=== PATIENT | male | born 1980 | race Caucasian/White ===

== ENCOUNTER 2020-09-13 04:00 | Emergency (ER) | payer OTHER ==
--- NOTE | 2020-09-13 06:10 | EDM.PDOC ---
ED HPI GENERAL MEDICAL PROBLEM - General Chief Complaint: ENT Problem Stated Complaint: NOSE BLEED Time Seen by Provider: 09/13/20 05:45 Source of Information: Reports: Patient History Limitations: Reports: No Limitations - History of Present Illness INITIAL COMMENTS - FREE TEXT/NARRATIVE: Mr. Jones is a very pleasant 40-year-old gentleman who now presents the ED after experiencing on and off left-sided epistaxis since yesterday afternoon, , 09/12/2020. He states that he has been stopping the epistaxis by stuffing his left nostril with Kleenex, or by pinching his nostrils with his fingers. He denies any injury to his nose. He states that he does not have a history of epistaxis, although he does report having nasal congestion for the past week. No recent fever. Here in the ED, the patient's initial BP is found to be slightly elevated at 137/114, otherwise, he is hemodynamically stable, afebrile, saturating 97% on room air. Prior to this afternoon, the patient denies having a recent fever, chills, sore throat, ear pain, nasal or sinus congestion, cough, dyspnea, chest pain, palpitations, nausea, vomiting, constipation, diarrhea, abdominal pain, urinary symptoms, recent weight gain or weight loss, recent bloody bowel movements or black bowel movements, recent joint aches, headaches, or rashes. The patient does not have a PCP. He has not received a COVID vaccination. - Related Data Allergies Allergy/AdvReac Type Severity Reaction Status Date / Time No Known Allergies Allergy Verified 09/13/20 04:16 Past Medical History Musculoskeletal History: Reports: Fracture (left hand) Endocrine/Metabolic History: Reports: Obesity/BMI 30+ Dermatologic History: Reports: Psoriasis - Past Surgical History HEENT Surgical History: Reports: Oral Surgery (dental extractions) Musculoskeletal Surgical History: Reports: ORIF (left hand) Social & Family History - Tobacco Use Tobacco Use Status *Q: Current Every Day Tobacco User Years of Tobacco use: 12 Packs/Tins Daily: 1 Tobacco Use Comment: Started smoking 2008 - Caffeine Use Caffeine Use: Reports: Coffee - Alcohol Use Alcohol Use History: Yes Alcohol Use Frequency: Rarely - Recreational Drug Use Recreational Drug Use: No - Living Situation & Occupation Living situation: Reports: , with Spouse, with Family (2 kids) Occupation: Employed (retail loss prevention officer) ED ROS ENT - Review of Systems Review Of Systems: Comprehensive ROS is negative, except as noted in HPI. ED EXAM, ENT - Physical Exam Exam: See Below Exam Limited By: No Limitations General Appearance: Alert, WD/WN, No Apparent Distress Eye Exam: Bilateral Eye: EOMI, Normal Inspection Ears: Normal External Exam, Normal Canal, Hearing Grossly Normal, Normal TMs Nose: Dried Blood (Along the inferior margin of the left nasal septum. No visible suspect vessel.). No: Active Bleeding Mouth/Throat: Normal Gums, Normal Lips, Normal Teeth, Other (Dried blood adhered to the posterior oropharynx, despite gargling with water) Head: Atraumatic, Normocephalic Neck: Normal Inspection, Supple, Non-Tender, Full Range of Motion. No: Lymphadenopathy (L), Lymphadenopathy (R) Course - Vital Signs Last Recorded V/S: Last Vital Signs Temp 36.4 C 09/13/20 04:12 Pulse 71 09/13/20 04:12 Resp 18 09/13/20 04:12 BP 137/114 H 09/13/20 04:12 Pulse Ox 97 09/13/20 04:12 - Re-Assessments/Exams Free Text/Narrative Re-Assessment/Exam: 09/13/20 06:03 As above, the patient has been experiencing left epistaxis on and off since yesterday afternoon. No known trauma. On examination at this time, there is some dried blood along the lower margin of his left nasal septum, which is likely covering up the offending vessel. No bleeding at this time. There is some dried blood along his posterior oropharynx, as well. We discussed the opt ion of cleaning his left nostril so that I could identify the offending vessel and cauterize it, but the patient would prefer that we simply apply petroleum jelly to keep the mucous membranes moist at this time. If he redevelops epistaxis, he knows to sit upright, tilt his head slightly forward, and pinch his nostrils tightly for 10 to 15 minutes. He may also pinch his nostril with an ice cube. I will discharge him home with a referral to the ENT Dr. Martinez that he can follow-up with if his epistaxis continues to recur. Departure - Departure Time of Disposition: 06:05 Disposition: Home, Self-Care 01 Condition: Good Clinical Impression: Anterior epistaxis - Discharge Information *PRESCRIPTION DRUG MONITORING PROGRAM REVIEWED*: Not Applicable *COPY OF PRESCRIPTION DRUG MONITORING REPORT IN PATIENT YAMILETH: Not Applicable Instructions: Nosebleed, [id number] Referrals: PCP,None [Primary Care Provider] - Tawanda Martinez MD [Ordering Only Provider] - Forms: ED Department Discharge Additional Instructions: You were seen in the emergency room for a recurrent left nosebleed since yesterday afternoon. On examination in the ER, the bleeding had stopped. There was some dried blood along the lower part of your left nostril, likely covering up the offending vessel. Any of the blood away to find the offending vessel, in order to potentially cauterize it was offered, but declined. Keep your left nasal septum moist with a thin smear of petroleum jelly applied a few times per day. If you redevelop a nosebleed, sit upright, tilt your head slightly forward, and pinch your nostrils tightly for 10 to 15 minutes. You can also pinch your nostrils with an ice cube. If you continue to have nosebleeds, please follow-up with the ENT DrDevan Martinez, in [place]. Don't forget that [place] is 1 hour ahead of us. If any other problems, please do not hesitate to return to the ER. Sepsis Event Note (ED) - Evaluation Sepsis Screening Result: No Definite Risk
== END 2020-09-13 05:45 | disposition home or self-care (01) ==
LOC: JD.ED 04:00
DX: R04.0 Epistaxis (principal); E66.9 Obesity, unspecified; Z68.35 Body mass index [BMI] 35.0-35.9, adult; Z72.0 Tobacco use
CPT/HCPCS: 99282; 99283